=== PATIENT | male | born 1950 | race Caucasian/White ===

== ENCOUNTER 2024-12-09 12:33 | Observation (INO) | payer MEDICARE ==
[2024-12-09 14:49] VITALS: BMI 27.0
[2024-12-09] MEDS ORDERED: Melatonin 3 MG TAB PO PRN (15:26)
[2024-12-09] MEDS ORDERED: Ondansetron PF 4 MG/2 ML Vial IVP PRN (15:26)
[2024-12-09] MEDS ORDERED: Acetaminophen 325 MG TAB PO PRN (15:26)
[2024-12-09] MEDS ORDERED: Senokot S 8.6-50 MG TAB PO PRN (15:26)
[2024-12-09] MEDS ORDERED: Guaifenesin DM 100-10/5 ML UDCUP PO PRN (15:26)
[2024-12-09] MEDS ORDERED: Electrolyte Replacement Protocol 1 EACH FS SCH (15:30)
[2024-12-09] MEDS ORDERED: Glucagon 1 MG/ML KIT IM PRN (18:07)
[2024-12-09] MEDS ORDERED: Dextrose 50% Abboject 50 ML SYRINGE SLOW IVP PRN (18:07)
[2024-12-09] MEDS: Apixaban 5 MG TAB PO SCH (21:10)
[2024-12-09] MEDS: Rosuvastatin 20 MG TAB PO SCH (21:10)
[2024-12-09] MEDS: Carvedilol 6.25 MG TAB PO SCH (21:10)
[2024-12-09] MEDS: Pantoprazole 40 MG DR.TAB PO SCH (21:10)
[2024-12-10 04:14] LABS: #Basophils Less than 0.03 10x3/uL (0.0-0.2); #Eosinophils 0.08 10x3/uL (0.0-0.7); #Monocytes 0.50 10x3/uL (0.11-0.59); #Neutrophils 2.91 10x3/uL (1.40-6.50); %Basophils 0.4 % (0.0-1.0); %Eosinophils 1.4 % (0.0-10.0); %Lymphocytes 37.5 % (21.0-51.0); %Monocytes 8.8 % (0.0-10.0); %Neutrophils 51.5 % (42.0-75.0); Hematocrit 40.2 % (42.0-52.0); Hemoglobin 13.1 g/dL (14.0-18.0); Mean Corpuscular Hemoglobin 31.2 pg (27.0-31.0); Mean Corpuscular Volume 95.7 fL (78.0-98.0); Platelet Count 145 10x3/uL (130-400); Red Blood Cell (RBC) Count 4.20 mill/uL (4.70-6.10); White Blood Cell (WBC) Count 5.65 10x3/uL (4.8-10.8)
[2024-12-10 04:27] LABS: Anion Gap 17 mmol/L (10-20); BUN (Urea Nitrogen) 17 mg/dL (8.4-25.7); Calc. Creatinine Clearance 64 mL/min (70-130); Calcium 8.8 mg/dL (7.8-10.44); Carbon Dioxide 20 mmol/L (23-31); Chloride 107 mmol/L (98-107); Glucose 133 mg/dL (83-110); Potassium 4.7 mmol/L (3.5-5.1); Sodium 139 mmol/L (136-145)
[2024-12-10] MEDS: Aspirin 81 mg Enteric Coated Tablet PO SCH (10:00)
[2024-12-10 13:39] VITALS: BP 156/67; TEMP 97.2
== END 2024-12-10 15:14 | disposition home or self-care (01) ==
LOC: 2SE 14:09
PROVIDERS: ADMIT Family Medicine; ATTEND Hospitalist
PROC: B24BZZZ Ultrasonography of Heart with Aorta (ICD-10-PCS; principal; 2024-12-09)
DX: I26.99 Other pulmonary embolism without acute cor pulmonale (principal); I08.2 Rheumatic disorders of both aortic and tricuspid valves; I25.10 Atherosclerotic heart disease of native coronary artery without angina pectoris; K21.9 Gastro-esophageal reflux disease without esophagitis; K29.00 Acute gastritis without bleeding; Z95.1 Presence of aortocoronary bypass graft; Z79.01 Long term (current) use of anticoagulants; Z79.82 Long term (current) use of aspirin; Z79.899 Other long term (current) drug therapy
CPT/HCPCS: 80048; 82962 ×2; 83036; 83880; 84484; 85025; 93306; 93970; G0378 ×2; 36415; 36416